=== PATIENT | male | born 1980 | race Caucasian/White ===

== ENCOUNTER 2019-01-27 11:14 | Emergency (ER) | payer BC, SELFPAY ==
[2019-01-27 12:03] LABS: #Eosinphils 0.2 thou/uL (0.0-0.7); #Lymphocytes 1.8 thou/uL (1.20-3.40); #Monocytes 0.6 thou/uL (0.11-0.59); #Neutrophils 9.1 thou/uL (1.40-6.50); %Basophils 0.3 % (0.0-1.0); %Eosinophils 1.4 % (0.0-10.0); %Lymphocytes 15.2 % (21.0-51.0); %Monocytes 5.3 % (0.0-10.0); %Neutrophils 77.7 % (42.0-75.0); Hemoglobin 16.7 g/dL (14.0-18.0); Mean Corpuscular HGB CONC 33.7 g/dL (32.0-36.0); Mean Corpuscular Hemoglobin 29.3 pg (27.0-31.0); Mean Platelet Volume 7.4 fL (7.4-10.4); Platelet Count 240 thou/uL (130-400); RBC Distribution Width 11.3 % (11.5-14.5); White Blood Cell (WBC) Count 11.7 thou/uL (4.8-10.8)
[2019-01-27] MEDS ORDERED: Ketorolac Tromethamine 30 MG/ML VIAL ONE (12:04)
--- NOTE | 2019-01-27 12:13 | ULT ---
BILATERAL TESTICULAR ULTRASOUND WITH [place]CH[place]A SCALE AND COLOR FLOW AND SPECTRAL DOPPLER IMAGING: Date: 01/27/19 HISTORY: Right testicular pain. FINDINGS: The right testis measures 3.1 x 2.1 x 4.6 cm. The left testis measures 2.9 x 1.8 x 4.4 cm. Symmetric flow is demonstrated to both testes and epididymides. No testicular mass or microlithiasis seen. No h ydroceles are identified. There is a 3.5 x 3.0 x 4.6 mm cyst in the right epididymal head. The left e pididymis is normal. IMPRESSION: Right epididymal head cyst/spermatocele measuring 3.5 x 3.0 x 4.6 mm. POS: [facility]
[2019-01-27 12:31] LABS: ALT (SGPT) 11 U/L (8-55); AST (SGOT) 15 U/L (5-34); Alkaline Phosphatase 94 U/L (40-110); Anion Gap 12 mmol/L (10-20); BUN (Urea Nitrogen) 17 mg/dL (8.9-20.6); Bilirubin, Total 1.9 mg/dL (0.2-1.2); Calc. Creatinine Clearance 0 mL/min (70-130); Calcium 9.7 mg/dL (7.8-10.44); Carbon Dioxide 28 mmol/L (22-29); Chloride 105 mmol/L (98-107); Estimated GFR-MDRD 60; Globulin 2.7 g/dL (2.4-3.5); Glucose 105 mg/dL (70-105); Lipase 27 U/L (8-78); Potassium 4.1 mmol/L (3.5-5.1); Protein, Total 7.7 g/dL (6.0-8.3); Sodium 141 mmol/L (136-145)
[2019-01-27 12:39] LABS: Bacteria/HPF None Seen HPF (None Seen); Bilirubin Negative (Negative); Blood, Urine 3+ (Negative); Clarity Clear (Clear); Glucose, Urine (Dipstick) Normal (Negative); Leukocyte Negative Leu/uL (Negative); Nitrite Negative (Negative); Protein, Urine (Dipstick) 20 mg/dL (Neg-Trace); RBC/HPF Greater than 50 HPF (0-3); Squamous Epithelial 0-3 HPF (0-3); Urobilinogen Normal mg/dL (Less than 2)
--- NOTE | 2019-01-27 13:25 | CT ---
CT ABDOMEN AND PELVIS WITHOUT CONTRAST: 01/27/19 HISTORY: Right sided testicular pain, right flank pain and abdominal pain. FINDINGS: Absence of oral and IV contrast reduces the sensitivity of the exam particularly for evaluation of so lid organs and bowel. The lung bases are clear. No calcified gallstones are seen. No free air or free fluid is noted in the abdomen or pelvis. No calculi is seen in the kidneys or left ureter or the urinary bladder. There is a 2 mm calculus in the distal right ureter proximal to the UVJ with mild hydroureteronephrosis. There is a 15 mm cyst in the left renal cortex. No left sided hydroureteronephrosis is seen. A normal appearing appendix is seen. No acute osseous abnormalities are noted. IMPRESSION: 1. 2 mm distal right ureteral calculus with mild hydroureteronephrosis. 2. Right renal cyst. POS: [facility]
[2019-01-28 20:01] LABS: Chlam.trachomatis by PCR,Urine Not Detected (NotDetected)
== END 2019-01-27 14:30 | disposition home or self-care (01) ==
LOC: ERS 11:14
DX: N13.2 Hydronephrosis with renal and ureteral calculous obstruction (principal); F41.9 Anxiety disorder, unspecified; R11.0 Nausea
CPT/HCPCS: 36415; 74176; 76870; 80053; 81003; 81015; 83690; 85025; 87491; 87591; 93976; J1885